=== PATIENT | male | born 1985 | race Caucasian/White ===

== ENCOUNTER 2017-09-30 22:06 | Emergency (ER) | payer MEDICAID ==
[~2017-09-30] VITALS: Ht 177.8 cm; Wt 70.0 kg
[~2017-09-30 22:06] MED LIST: CYCL10TA PO; IBUP-232 PO; ONDA1TAB16 PO; PERC5TAB12 PO
[2017-09-30 22:33] VITALS: BP 130/62; PULSE 84; RESP 16; O2SAT 96
== END 2017-10-01 00:50 | disposition left against medical advice (07) ==
LOC: NED 23:59
DX: Z03.89 Encounter for observation for other suspected diseases and conditions ruled out (principal)
CPT/HCPCS: 99281

== ENCOUNTER 2017-10-03 09:11 | Emergency (ER) | payer SELFPAY ==
[~2017-10-03] VITALS: Ht 177.8 cm; Wt 70.0 kg
[2017-10-03 09:20] VITALS: BP 142/94; PULSE 74; RESP 14; TEMP 98.5; O2SAT 99
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
== END 2017-10-03 10:23 | disposition home or self-care (01) ==
LOC: NEPK 09:11
DX: Z04.1 Encounter for examination and observation following transport accident (principal); I10 Essential (primary) hypertension; E03.9 Hypothyroidism, unspecified; Z87.39 Personal history of other diseases of the musculoskeletal system and connective tissue; Z86.59 Personal history of other mental and behavioral disorders; Z86.69 Personal history of other diseases of the nervous system and sense organs; V09.9XXA Pedestrian injured in unspecified transport accident, initial encounter; W19.XXXA Unspecified fall, initial encounter; Y99.0 Civilian activity done for income or pay
CPT/HCPCS: 99281